=== PATIENT | female | born 1950 | race Caucasian/White ===

== ENCOUNTER 2019-03-21 14:44 | Emergency (ER) | payer MEDICARE, MEDICAID ==
[~2019-03-21] VITALS: Ht 177.8 cm; Wt 77.1 kg
[~2019-03-21 14:44] MED LIST: AMPYRA10 MG PO; ASCORBIC ACID500 M1 PO; B-12 DOTS500 MCG PO; BACLOFEN PO; BACLOFEN20 MG PO; BACTRIM; CALCIUM; CHOLECALCIFEROL; COUMADIN 5 MG TA5 M1 PO; CRANBERRY500 M1 PO; CYANOCOBALAM1000 MCG PO; DIFLUCAN; DITROPAN XL5 M1 PO; DUONEB 2.5-0.5 M3 ML IH; FOSAMAX 70 MG T70 M1 PO; GREEN TEA1 EACH PO; IBUPROFEN 200200 M1 PO; IBUPROFEN 800800 M1 PO; LACTULOSE; LASIX 40 MG TAB40 MG PO; LEVAQUIN 500 M500 M1 PO; LEVAQUIN 500 M500 M5 PO; LEVOTHROID300 MCG PO; LOVENOX SC; METHOTREXATE 22.5 MG PO; MOTOFEN TABLET1 EACH PO; NEPHROCAPS SOFT1 CAP PO; NEURONTIN 300300 M1 PO; NOHOMEMEDICATIONS; NORCO 5-325 TA1 EACH PO; OXYBUTYNIN; OXYBUTYNIN 5 MG5 M1 PO; PREMPHASE 0.621 EAC1 PO; PREMPRO 0.625-1 EACH PO; PROVERA2.5 MG PO; REBETOL200 MG PO; REBIF; SEE COMMENTS; STOOL SOFTENER240 MG PO; TIROSINT25 MCG PO; UNKNOWN MEDICATION; URISPAS100 MG PO; VESICARE 5 MG TA5 MG PO; VICODIN 5-5001 EACH PO; VITAMIN A10000 UNI3 IM; VITAMIN B-12500 MCG PO; VITAMIN C100 M1 PO; VITAMIN D1000 UNI1 PO; VITAMIN E400 UNIT PO; VITAMINC500 PO; ZOLOFT 50 MG TA50 M1 PO
[2019-03-21 15:19] LABS: ABSOLUTE LYMPHOCYTES 1.6 thou/uL (0.8-5.3); ABSOLUTE MONOCYTES 0.8 thou/uL (0.0-1.2); ABSOLUTE NEUTROPHILS 6.4 thou/uL (1.6-8.1); BASOPHILS 0.4 %; EOSINOPHILS 0.5 %; HEMATOCRIT 41.4 % (37.0-47.0); HEMOGLOBIN 13.6 gm/dL (12.0-15.0); MCH 28.8 pg (26.0-34.0); MCHC 32.9 g/dL (28.0-37.0); MCV 87.6 fL (80.0-100.0); MONOCYTES 8.6 %; MPV 9.1 fl. (7.2-11.1); NUCLEATED RBCS 0 /100WBC; PLATELET COUNT* 282 thou/uL (150-400); POLYS 72.5 %; RBC 4.73 mil/uL (4.20-5.00); RDW-CV 14.4 % (10.5-14.5); WBC 8.8 thou/uL (4.0-11.0)
[2019-03-21 15:24] LABS: CREATININE 0.5 mg/dL (0.6-1.3); POTASSIUM 4.4 mmol/L (3.5-5.1)
[2019-03-21 15:29] LABS: ALBUMIN 3.9 g/dL (3.4-5.0); TOTAL BILIRUBIN 0.5 mg/dL (<0.1-1.0); TOTAL PROTEIN 8.4 g/dL (6.4-8.2)
[2019-03-21 16:19] LABS: APTT 30.3 Seconds (25.0-31.3); INR 1.1; PROTIME 11.6 Seconds (9.20-11.50)
[2019-03-21 17:20] VITALS: BP 125/72
--- NOTE | 2019-03-24 17:07 | PATH ---
[facility] [address] [place] [address] PATHOLOGY RPT PROCEDURE Name: SHEELA MCDONOUGH Room: [facility] Nelly#: [id number] Admission: 03/21/19 Date of : 48 Discharge: 03/21/19 Report #: [id number] Path Case #: [id number] [facility] Accession Number: [id number] . 01 Material submitted: . esophagus - EOSPHAGEAL BIOPSY . 01 Clinical history: . Food bolus; R/O elan . 02 Diagnosis: Esophageal biopsy: - Typical of Elan esophagitis. See comment. . (FELISA:mayur; 03/23/2019) QMS 03/23/2019 1030 Local . 02 Comment: The biopies reveal acutely inflamed squamous/esophageal mucosa with easily identified fungal and yeast elements compatible with Elan species seen within the squamous epithelium. (FELISA:mayur; 03/23/2019) . 02 Electronically signed: . Ronaldo Figueroa MD, Pathologist NPI- [id number] . 01 Gross description: . The specimen is received in formalin, labeled "Sheela Mcdonough, esophageal biopsy". Received are three segments of pale hummel soft tissue ranging in size from 0.4 to 0.5 cm in maximum dimensions. The specimen is submitted entirely in cassette A1. (CAA; 03/22/2019) QAC/QAC 03/22/2019 1546 Local . 02 Pathologist provided ICD-10: B37.81 . 02 CPT . 308958 Specimen Comment: A courtesy copy of this report has been sent to [phone] Specimen Comment: Report sent to / DR ANDREWS Specimen Comment: A duplicate report has been generated due to demographic updates. Performed at: [address] [id number] MD Bry Haynes MD Phone: [phone] [place] [address] PATHOLOGY RPT PROCEDURE Name: SHEELA MCDONOUGH Room: [facility]#: [id number] Admission: 03/21/19 Date of : 48 Discharge: 03/21/19 Report #: [id number] Path Case #: [id number] Performed at: [address] [place], [place], [place] [id number] MD Ronaldo Figueroa MD Phone: [phone]
== END 2019-03-21 17:20 | disposition still patient (30) ==
LOC: M.GI 14:44 → M.ERS 14:44 → M.GI 17:20
PROVIDERS: Personal Emergency Response Attendant
DX: T18.128A Food in esophagus causing other injury, initial encounter (principal); J45.909 Unspecified asthma, uncomplicated; Z88.0 Allergy status to penicillin; Z88.5 Allergy status to narcotic agent; Z88.8 Allergy status to other drugs, medicaments and biological substances; Z90.49 Acquired absence of other specified parts of digestive tract; Z98.51 Tubal ligation status; X58.XXXA Exposure to other specified factors, initial encounter; Y93.89 Activity, other specified; Y92.89 Other specified places as the place of occurrence of the external cause; Y99.8 Other external cause status

== ENCOUNTER → 2019-05-12 | Day surgery (SDC) | payer OTHER, MEDICAID ==
[~2019-05-12] MED LIST changes: +ACETAMINOPHEN650 MG RECTAL; +CHILDREN'S ASPI81 M1 PO; +CULTURELLE KID1 EAC1 PO; +MECLIZINE HCL25 M1 PO; +MIDODRINE HCL 55 M1 PO; +MILK OF MA400 MG/5 M PO; +MIRALAX119 GM PO; +ONDANSETRON HCL4 M2 PO; +PAIN RELIEF325 MG PO; +PROTONIX40 M2 PO; +REGLAN 5 MG TAB5 MG PO; +SENNA PLUS TAB1 EACH PO; +SERTRALINE HCL100 MG PO; +TRAMADOL 50 MG50 MG PO
--- NOTE | ~2019-05-12 | PROC ---
[facility] [address] [place] [address] PROCEDURE REPORT Name: FELICIA MALIK Room: [facility]#: [id number] Admission: 05/12/19 Attend Phys: Long Wilder MD Discharge: Date of : 48 Report #: [id number] THIS REPORT FOR: //name// cc: Shady Johnson Scott DO ~ THIS REPORT FOR: //name// For GI report, please see the Provation report in [employer] content. By: 0637Medical Records Staff NEO /JANY
--- NOTE | 2019-05-12 10:25 | EKG ---
[place] [address] ELECTROCARDIOGRAM REPORT Name: FELICIA MALIK Room: [facility]#: [id number] Admission: 05/12/19 Attend Phys: Long Wilder MD Discharge: Date of : 48 Date of Service: 05/12/19 1008 Report #: [id number] THIS REPORT FOR: //name// [facility] Test Date: 2019-05-12 Test Time: 10:08:31 Pat Name: FELICIA MALIK Department: Room: Gender: F Flower Cheniller: : 1950 Requested By: Long Wilder Order Number: [id number] MD: Kade Santos Measurements Intervals [place] Rate: 78 P: 68 DC: 158 QRS: -40 QRSD: 124 T: 28 QT: 387 QTc: 441 Interpretive Statements Sinus rhythm incomplete RBBB Nonspecific IVCD with LAD Borderline T abnormalities, anterior leads Compared to ECG 08/14/2009 10:11:31 no change Electronically Signed On 05-12-2019 10:24:43 ACOUSTICAL INSTALLER by Kade Santos [email or web address] <ELECTRONICALLY SIGNED> By: Kade Santos MD, FACC 05/12/19 1024 1008 1008 Kade Santos MD, [facility] /EPI
[2019-05-12 10:33] LABS: HEMATOCRIT 37.9 % (37.0-47.0); HEMOGLOBIN 12.8 gm/dL (12.0-15.0); MCH 29.2 pg (26.0-34.0); MCHC 33.6 g/dL (28.0-37.0); MCV 86.9 fL (80.0-100.0); MPV 9.6 fl. (7.2-11.1); RBC 4.37 mil/uL (4.20-5.00); RDW-CV 14.1 % (10.5-14.5); WBC 5.5 thou/uL (4.0-11.0)
[2019-05-12 10:47] LABS: CREATININE 0.3 mg/dL (0.6-1.3); POTASSIUM 3.7 mmol/L (3.5-5.1)
== END | disposition home or self-care (01) ==
LOC: M.SUR 06:50
PROVIDERS: Internal Medicine Gastroenterology
DX: R13.19 Other dysphagia (principal); K21.9 Gastro-esophageal reflux disease without esophagitis; K22.2 Esophageal obstruction; K22.8 Other specified diseases of esophagus; K44.9 Diaphragmatic hernia without obstruction or gangrene; G35 Multiple sclerosis; J45.909 Unspecified asthma, uncomplicated; Z98.890 Other specified postprocedural states; Z79.899 Other long term (current) drug therapy; Z88.0 Allergy status to penicillin; Z98.51 Tubal ligation status; Z96.651 Presence of right artificial knee joint; Z90.49 Acquired absence of other specified parts of digestive tract; Z88.6 Allergy status to analgesic agent; Z88.8 Allergy status to other drugs, medicaments and biological substances

== ENCOUNTER 2020-02-12 11:31 | Inpatient (IN) | payer OTHER, MEDICAID ==
[~2020-02-12] VITALS: Ht 167.6 cm; Wt 83.5 kg
[~2020-02-12 11:31] MED LIST changes: -LEVOTHROID300 MCG PO; +LEVOTHYROXINE150 MC1 PO; +OXYBUTYNIN 5 MG5 M2 PO; -SERTRALINE HCL100 MG PO; +SERTRALINE HCL25 M1 PO
[2020-02-12] MEDS ORDERED: ACYCLOVIR 400400 MG PO (11:36)
[2020-02-12 11:38] VITALS: BP 114/57
[2020-02-12] MEDS ORDERED: DULCOLAX10 MG RECTAL (11:45)
[2020-02-12] MEDS ORDERED: BREO ELLIPTA 11 EACH INH (11:47)
[2020-02-12] MEDS ORDERED: DOXYCYCLINE 10100 M2 PO (11:48)
[2020-02-12] MEDS ORDERED: ERYTHROMYCIN250 M1 PO (11:48)
[2020-02-12] MEDS ORDERED: FISH OIL 1,0001 EAC9 PO (11:49)
[2020-02-12] MEDS ORDERED: FUROSEMIDE 20 M20 MG PO (11:50)
[2020-02-12] MEDS ORDERED: FLONASE 0.05%50 MCG NASAL (11:50)
[2020-02-12] MEDS ORDERED: NEURONTIN 300M300 M2 PO (11:51)
[2020-02-12] MEDS ORDERED: MELATONIN3 M1 PO (11:52)
[2020-02-12] MEDS ORDERED: MULTIVITAMINS1 EAC6 PO (11:53)
[2020-02-12] MEDS ORDERED: NYSTATIN100000 UNI SW&SWALLOW (11:53)
[2020-02-12] MEDS ORDERED: ZINC SULFATE220 MG PO (11:55)
[2020-02-12 12:12] LABS: HEMATOCRIT 38.7 % (37.0-47.0); HEMOGLOBIN 12.8 gm/dL (12.0-15.0); MCH 28.2 pg (26.0-34.0); MCHC 33.1 g/dL (28.0-37.0); MCV 85.3 fL (80.0-100.0); MPV 8.4 fl. (7.2-11.1); NUCLEATED RBCS 0 /100WBC; PLATELET COUNT* 204 thou/uL (150-400); RBC 4.54 mil/uL (4.20-5.00); RDW-CV 15.2 % (10.5-14.5); WBC 10.4 thou/uL (4.0-11.0)
[2020-02-12 12:21] LABS: CALCIUM 8.7 mg/dL (8.5-10.1); CREATININE 0.7 mg/dL (0.6-1.3); POTASSIUM 3.3 mmol/L (3.5-5.1)
[2020-02-12 12:24] LABS: APTT 34.2 Seconds (25.0-31.3); PROTIME 10.7 Seconds (9.20-11.50)
[2020-02-12 12:32] LABS: ALBUMIN 2.4 g/dL (3.4-5.0); TOTAL BILIRUBIN 0.5 mg/dL (<0.1-1.0); TOTAL PROTEIN 7.1 g/dL (6.4-8.2)
[2020-02-12 12:56] LABS: ABSOLUTE LYMPHOCYTES 0.8 thou/uL (0.8-5.3); ABSOLUTE MONOCYTES 0.3 thou/uL (0.0-1.2); ABSOLUTE NEUTROPHILS 9.3 thou/uL (1.6-8.1); PLATELET ESTIMATE ADEQUATE
[2020-02-12 14:03] VITALS: BP 123/50
--- NOTE | 2020-02-12 15:40 | EKG ---
[place] [address] ELECTROCARDIOGRAM REPORT Name: FELICIA MALIK Room: [address] ADM IN [facility]#: [id number] Admission: 02/12/20 Attend Phys: Steve Gonsales Discharge: Date of : 48 Date of Service: 02/12/20 1156 Report #: [id number] THIS REPORT FOR: //name// [facility] Test Date: 2020-02-12 Test Time: 11:56:51 Pat Name: FELICIA MALIK Department: Room: [facility] Gender: F [place]: BRENDA : 1950 Requested By: Segundo Felder Order Number: [id number] MD: Kade Santos Measurements Intervals [place] Rate: 124 P: 52 [place]: 137 QRS: -29 QRSD: 96 T: 10 QT: 346 QTc: 497 Interpretive Statements Sinus tachycardia Borderline left axis deviation Consider RVH w/ secondary repol abnormality Borderline prolonged QT interval artifact noted Compared to ECG 05/12/2019 10:08:31 Sinus rhythm no longer present Electronically Signed On 02-12-2020 15:40:22 FILM OR VIDEOTAPE EDITOR by Kade Santos [email or web address] <ELECTRONICALLY SIGNED> By: Kade Santos MD, FACC 02/12/20 1540 1156 1156 Kade Santos MD, FACC /EPI
[2020-02-12 16:14] LABS: CREATININE 0.3 mg/dL (0.6-1.3)
[2020-02-12 16:18] LABS: MAGNESIUM 2.1 mg/dL (1.8-2.4); PHOSPHORUS* 2.3 mg/dL (2.5-4.9)
[2020-02-12 20:00] VITALS: BP 105/65
[2020-02-12 20:19] LABS: PCO2 32.3 mmHg (35.0-45.0); PO2 72.6 mmHg (75.0-100.0)
[2020-02-12 21:30] VITALS: BP 110/67
[2020-02-13] VITALS (7 sets, daily range): BP systolic 106–139; BP diastolic 56–74
[2020-02-13 08:36] LABS: ABSOLUTE LYMPHOCYTES 0.5 thou/uL (0.8-5.3); ABSOLUTE MONOCYTES 0.4 thou/uL (0.0-1.2); HEMATOCRIT 34.8 % (37.0-47.0); HEMOGLOBIN 11.6 gm/dL (12.0-15.0); LYMPHOCYTES 8.7 %; MCH 28.2 pg (26.0-34.0); MCHC 33.3 g/dL (28.0-37.0); MCV 84.6 fL (80.0-100.0); MPV 8.3 fl. (7.2-11.1); NUCLEATED RBCS 0 /100WBC; PLATELET COUNT* 226 thou/uL (150-400); POLYS 85.3 %; RBC 4.11 mil/uL (4.20-5.00); RDW-CV 14.9 % (10.5-14.5); WBC 5.9 thou/uL (4.0-11.0)
[2020-02-13 08:54] LABS: ALBUMIN 2.1 g/dL (3.4-5.0); CALCIUM 7.6 mg/dL (8.5-10.1); CREATININE 0.2 mg/dL (0.6-1.3); MAGNESIUM 2.3 mg/dL (1.8-2.4); PHOSPHORUS* 2.3 mg/dL (2.5-4.9); POTASSIUM 3.7 mmol/L (3.5-5.1); TOTAL BILIRUBIN 0.3 mg/dL (<0.1-1.0); TOTAL PROTEIN 6.4 g/dL (6.4-8.2)
[2020-02-13 17:25] LABS: CREATININE 0.4 mg/dL (0.6-1.3); MAGNESIUM 2.1 mg/dL (1.8-2.4); POTASSIUM 3.7 mmol/L (3.5-5.1)
[2020-02-14] VITALS: BP 139/74
[2020-02-14 04:00] VITALS: BP 126/64
[2020-02-14 06:39] LABS: ABSOLUTE LYMPHOCYTES 0.5 thou/uL (0.8-5.3); ABSOLUTE MONOCYTES 0.4 thou/uL (0.0-1.2); BASOPHILS 0.2 %; EOSINOPHILS 0.1 %; HEMATOCRIT 34.6 % (37.0-47.0); HEMOGLOBIN 11.4 gm/dL (12.0-15.0); LYMPHOCYTES 7.6 %; MCH 28.2 pg (26.0-34.0); MCHC 32.8 g/dL (28.0-37.0); MCV 85.8 fL (80.0-100.0); MONOCYTES 5.1 %; MPV 8.1 fl. (7.2-11.1); NUCLEATED RBCS 0 /100WBC; PLATELET COUNT* 285 thou/uL (150-400); RBC 4.03 mil/uL (4.20-5.00); RDW-CV 14.9 % (10.5-14.5); WBC 6.9 thou/uL (4.0-11.0)
[2020-02-14 06:55] LABS: ALBUMIN 1.9 g/dL (3.4-5.0); ALKALINE PHOSPHATASE 48 U/L (46-116); BUN 14 mg/dL (7-18); CALCIUM 6.2 mg/dL (8.5-10.1); CO2 21 mmol/L (21-32); CREATININE 0.2 mg/dL (0.6-1.3); GLUCOSE 93 mg/dL (70-99); MAGNESIUM 1.7 mg/dL (1.8-2.4); SGOT 30 U/L (15-37); SGPT 17 U/L (30-65); SODIUM 145 mmol/L (136-145); TOTAL BILIRUBIN 0.4 mg/dL (<0.1-1.0); TOTAL PROTEIN 5.3 g/dL (6.4-8.2)
[2020-02-14 07:03] LABS: ANION GAP < 0 mmol/L (7-16); CHLORIDE 1141 mmol/L (98-107); POTASSIUM 2.4 mmol/L (3.5-5.1)
[2020-02-14 08:00] VITALS: BP 139/70
[2020-02-14 10:25] LABS: CREATININE 0.3 mg/dL (0.6-1.3)
[2020-02-14 10:53] LABS: CALCIUM 8.7 mg/dL (8.5-10.1); POTASSIUM 3.6 mmol/L (3.5-5.1)
[2020-02-14 11:27] VITALS: BP 156/91
[2020-02-14 16:50] VITALS: BP 134/71
[2020-02-14 18:53] LABS: CALCIUM 8.5 mg/dL (8.5-10.1); CREATININE 0.5 mg/dL (0.6-1.3); MAGNESIUM 2.1 mg/dL (1.8-2.4)
[2020-02-14 18:57] LABS: POTASSIUM 2.9 mmol/L (3.5-5.1)
[2020-02-14 21:04] VITALS: BP 137/74
[2020-02-15] VITALS (7 sets, daily range): BP systolic 128–142; BP diastolic 60–82
--- NOTE | 2020-02-15 12:38 | CON ---
[address] [address] CONSULTATION Name: HELENAFELICIA Alexander Room: [address] IN [facility]#: [id number] Admission: 02/12/20 Attend Phys: Steve Briseno, Discharge: Date of : 48 Report #: [id number] THIS REPORT FOR: cc: Shady Johnson Scott DO ~ Pervez, Adeel MD DATE OF SERVICE: 02/12/2020 REQUESTING PHYSICIAN: Consult has been requested by Dr. Briseno. INDICATION FOR CONSULTATION: Acute hypoxemic respiratory failure secondary to COVID-19. HISTORY OF PRESENT ILLNESS: This is a 69-year-old female with past medical history as mentioned below. The patient is the resident of a [facility]. She was diagnosed with COVID-19 eight days ago. The patient was now desaturating up to 74% and therefore was admitted to this hospital. The patient reports severe shortness of breath. She has also had a cough. There is not much sputum. The patient is noted to be DNR and DNI, was on 100% nonrebreather mask at the time of my evaluation. The patient answered to the negative for 10 questions for review of systems except as above. PAST MEDICAL HISTORY: Bronchial asthma, multiple sclerosis, goiter, thyroidectomy, appendectomy, anemia, cholecystectomy, tonsillectomy, adenoid removal, right total knee surgery, femur surgery, rotator cuff surgery, tubal ligation. ALLERGIES: THE PATIENT IS ALLERGIC TO PENICILLIN; HOWEVER, TOLERATES CEPHALOSPORINS WITHOUT ANY PROBLEMS. CODEINE, THIOPENTAL SODIUM ____. [facility]. HOME MEDICATIONS: Also in [facility] reviewed. Note, that these include doxycycline. It is not known to me as to whether this was a current or old medication. The patient is also noted to be on midodrine long-term. FAMILY HISTORY: There is no pertinent family history. PHYSICAL EXAMINATION: GENERAL: The patient is fully awake; however, is able to provide only a limited history. VITAL SIGNS: Has a pulse of 100 and blood pressure 123/50. She was saturating 98%, but was on 100% nonrebreather mask. She was afebrile with a temperature of 36.4. [place] [address] CONSULTATION Name: FELICIA MALIK Room: [address]#: [id number] Admission: 02/12/20 Attend Phys: Steve Briseno, Discharge: Date of : 48 Report #: [id number] HEENT: Head is normocephalic and atraumatic. NECK: Does not show raised JVP. CHEST: Breath sounds bilaterally equal, decreased. No added sounds. HEART: Regular. There is no murmur. ABDOMEN: Soft and nontender. EXTREMITIES: Lower extremities show no edema and no calf tenderness. SKIN: Dry and intact. NEUROLOGICAL: Moves all extremities bilaterally equally and spontaneously with no focal deficit identified. The patient's chest x-ray, which is consistent with infiltrates with COVID-19, there may be a component of pulmonary vascular congestion as well, in [employer] reviewed. ASSESSMENT AND PLAN: 1. Acute hypoxemic respiratory failure secondary to COVID-19. We will place her on BiPAP while asleep. We will titrate oxygen on a high-flow nasal cannula or heat high-flow nasal cannula as indicated when awake. We will see if we can take her off the 100% nonrebreather mask. 2. COVID-19. Start dexamethasone. Start remdesivir. We will give units of convalescent plasma. 3. Pulmonary infiltrates. The patient is from a [facility]. Therefore, broad-spectrum antibiotic coverage is ordered. Cultures and serologies including nasal swab for MRSA are ordered. Note that there is mention of doxycycline outpatient. It is not known to me as to whether this usage is current or recent. 4. Hypokalemia/hypotension/mild fluid overload. I ordered one dose of Aldactone with only 20 mg of Lasix as the patient's potassium is low. We will plan to diurese her more later. The patient takes midodrine long-term, we will restart midodrine as well. 5. evaluation for thromboembolic phenomenon. We will do D-dimer. If the D-dimer is elevated, then we will obtain a CTA chest. 6. Clostridium difficile prophylaxis, she is already on probiotic. 7. Gastrointestinal prophylaxis. Will order Protonix. 8. Past medical history of multiple sclerosis. The patient is critically ill at this time. Total time spent providing critical care to this patient today exceeds 45 minutes. <ELECTRONICALLY SIGNED> By: Wander Hayward MD 02/15/20 1238 1936 [id number] Hayward MD /nt
[2020-02-15 13:32] LABS: CALCIUM 8.5 mg/dL (8.5-10.1); CREATININE 0.4 mg/dL (0.6-1.3); MAGNESIUM 2.3 mg/dL (1.8-2.4); POTASSIUM 3.6 mmol/L (3.5-5.1)
[2020-02-16] VITALS (7 sets, daily range): BP systolic 124–152; BP diastolic 61–84
[2020-02-16 02:06] LABS: MYCOPLASMA PNEUMONIA IgG 180 U/mL (0-99); MYCOPLASMA PNEUMONIA IgM <770 U/mL (0-769)
[2020-02-16 05:30] LABS: HEMATOCRIT 34.1 % (37.0-47.0); HEMOGLOBIN 11.3 gm/dL (12.0-15.0); MCH 27.9 pg (26.0-34.0); MCV 84.4 fL (80.0-100.0); MPV 8.2 fl. (7.2-11.1); NUCLEATED RBCS 0 /100WBC; PLATELET COUNT* 319 thou/uL (150-400); RBC 4.04 mil/uL (4.20-5.00); RDW-CV 15.1 % (10.5-14.5); WBC 7.2 thou/uL (4.0-11.0)
[2020-02-16 06:03] LABS: ALBUMIN 2.8 g/dL (3.4-5.0); CALCIUM 8.3 mg/dL (8.5-10.1); CREATININE 0.4 mg/dL (0.6-1.3); POTASSIUM 3.1 mmol/L (3.5-5.1); TOTAL BILIRUBIN 0.6 mg/dL (<0.1-1.0)
[2020-02-16 07:25] LABS: ABSOLUTE LYMPHOCYTES 1.1 thou/uL (0.8-5.3); ABSOLUTE MONOCYTES 0.2 thou/uL (0.0-1.2); ABSOLUTE NEUTROPHILS 5.9 thou/uL (1.6-8.1); PLATELET ESTIMATE ADEQUATE
[2020-02-17 04:09] VITALS: BP 145/69
[2020-02-17 05:32] LABS: ABSOLUTE LYMPHOCYTES 0.6 thou/uL (0.8-5.3); ABSOLUTE MONOCYTES 0.6 thou/uL (0.0-1.2); ABSOLUTE NEUTROPHILS 7.9 thou/uL (1.6-8.1); BASOPHILS 0.5 %; HEMATOCRIT 34.8 % (37.0-47.0); HEMOGLOBIN 11.6 gm/dL (12.0-15.0); LYMPHOCYTES 6.7 %; MCH 28.3 pg (26.0-34.0); MCHC 33.4 g/dL (28.0-37.0); MCV 84.7 fL (80.0-100.0); MONOCYTES 6.7 %; NUCLEATED RBCS 0 /100WBC; PLATELET COUNT* 357 thou/uL (150-400); POLYS 86.1 %; RBC 4.11 mil/uL (4.20-5.00); RDW-CV 15.1 % (10.5-14.5); WBC 9.1 thou/uL (4.0-11.0)
[2020-02-17 06:01] LABS: ALBUMIN 2.5 g/dL (3.4-5.0); CALCIUM 7.7 mg/dL (8.5-10.1); CREATININE 0.3 mg/dL (0.6-1.3); POTASSIUM 4.1 mmol/L (3.5-5.1); TOTAL BILIRUBIN 0.5 mg/dL (<0.1-1.0); TOTAL PROTEIN 6.2 g/dL (6.4-8.2)
[2020-02-17 08:30] VITALS: BP 146/86
[2020-02-17 13:13] VITALS: BP 155/71
[2020-02-17 19:33] VITALS: BP 164/78
[2020-02-17 21:33] VITALS: BP 123/67
[2020-02-18 00:22] VITALS: BP 120/59
[2020-02-18 05:02] VITALS: BP 151/75
[2020-02-18 08:30] VITALS: BP 128/67
[2020-02-18 13:41] VITALS: BP 116/60
[2020-02-18 16:45] VITALS: BP 140/78
[2020-02-18 21:21] VITALS: BP 125/59
[2020-02-19 00:20] VITALS: BP 126/64
[2020-02-19 04:44] VITALS: BP 129/70
[2020-02-19 08:00] VITALS: BP 122/64
[2020-02-19 12:35] VITALS: BP 128/73
[2020-02-19 16:00] VITALS: BP 130/60
[2020-02-19 16:10] LABS: ABSOLUTE LYMPHOCYTES 0.5 thou/uL (0.8-5.3); ABSOLUTE MONOCYTES 0.9 thou/uL (0.0-1.2); ABSOLUTE NEUTROPHILS 12.8 thou/uL (1.6-8.1); BASOPHILS 0.1 %; HEMATOCRIT 35.1 % (37.0-47.0); HEMOGLOBIN 11.5 gm/dL (12.0-15.0); LYMPHOCYTES 3.6 %; MCH 27.8 pg (26.0-34.0); MCHC 32.7 g/dL (28.0-37.0); MCV 85.1 fL (80.0-100.0); MONOCYTES 6.5 %; MPV 8.7 fl. (7.2-11.1); NUCLEATED RBCS 0 /100WBC; PLATELET COUNT* 400 thou/uL (150-400); POLYS 89.8 %; RBC 4.12 mil/uL (4.20-5.00); RDW-CV 15.1 % (10.5-14.5); WBC 14.3 thou/uL (4.0-11.0)
[2020-02-19 16:22] LABS: ALBUMIN 2.3 g/dL (3.4-5.0); CALCIUM 8.2 mg/dL (8.5-10.1); CREATININE 0.5 mg/dL (0.6-1.3); MAGNESIUM 2.1 mg/dL (1.8-2.4); TOTAL BILIRUBIN 0.5 mg/dL (<0.1-1.0); TOTAL PROTEIN 5.6 g/dL (6.4-8.2)
[2020-02-19 21:00] VITALS: BP 133/67
[2020-02-20 00:42] VITALS: BP 125/65
[2020-02-20 04:00] VITALS: BP 131/70
[2020-02-20 06:58] LABS: HEMATOCRIT 34.5 % (37.0-47.0); HEMOGLOBIN 11.4 gm/dL (12.0-15.0); MCH 28.3 pg (26.0-34.0); MCHC 33.2 g/dL (28.0-37.0); MCV 85.2 fL (80.0-100.0); MPV 8.8 fl. (7.2-11.1); NUCLEATED RBCS 0 /100WBC; PLATELET COUNT* 394 thou/uL (150-400); RBC 4.05 mil/uL (4.20-5.00); RDW-CV 15.1 % (10.5-14.5); WBC 10.7 thou/uL (4.0-11.0)
[2020-02-20 07:34] LABS: ALBUMIN 2.3 g/dL (3.4-5.0); CALCIUM 7.9 mg/dL (8.5-10.1); CREATININE 0.3 mg/dL (0.6-1.3); MAGNESIUM 2.2 mg/dL (1.8-2.4); PHOSPHORUS* 2.8 mg/dL (2.5-4.9); POTASSIUM 4.4 mmol/L (3.5-5.1); TOTAL BILIRUBIN 0.5 mg/dL (<0.1-1.0); TOTAL PROTEIN 5.9 g/dL (6.4-8.2)
[2020-02-20 08:56] LABS: ABSOLUTE LYMPHOCYTES 0.6 thou/uL (0.8-5.3); ABSOLUTE MONOCYTES 0.4 thou/uL (0.0-1.2); ABSOLUTE NEUTROPHILS 9.6 thou/uL (1.6-8.1); ANISOCYTOSIS 1+; HYPOCHROMASIA Occasional; PLATELET ESTIMATE ADEQUATE; POIKILOCYTOSIS 1+
[2020-02-20 09:00] VITALS: BP 116/62
[2020-02-20 12:30] VITALS: BP 115/59
[2020-02-20 16:00] VITALS: BP 123/56
[2020-02-20 17:08] LABS: CALCIUM 8.4 mg/dL (8.5-10.1); CREATININE 0.5 mg/dL (0.6-1.3); MAGNESIUM 2.1 mg/dL (1.8-2.4); POTASSIUM 3.5 mmol/L (3.5-5.1)
[2020-02-20 21:00] VITALS: BP 123/57
[2020-02-21] VITALS (7 sets, daily range): BP systolic 80–141; BP diastolic 49–75
[2020-02-21 07:16] LABS: HEMATOCRIT 34.6 % (37.0-47.0); HEMOGLOBIN 11.4 gm/dL (12.0-15.0); MCHC 32.9 g/dL (28.0-37.0); MCV 85.2 fL (80.0-100.0); MPV 8.9 fl. (7.2-11.1); RBC 4.07 mil/uL (4.20-5.00); RDW-CV 15.1 % (10.5-14.5); WBC 9.1 thou/uL (4.0-11.0)
[2020-02-21 07:26] LABS: ALBUMIN 2.3 g/dL (3.4-5.0); CALCIUM 7.9 mg/dL (8.5-10.1); CREATININE 0.3 mg/dL (0.6-1.3); MAGNESIUM 2.1 mg/dL (1.8-2.4); POTASSIUM 4.2 mmol/L (3.5-5.1); TOTAL BILIRUBIN 0.5 mg/dL (<0.1-1.0); TOTAL PROTEIN 5.9 g/dL (6.4-8.2)
[2020-02-21 18:19] LABS: CALCIUM 8.4 mg/dL (8.5-10.1); CREATININE 0.4 mg/dL (0.6-1.3); MAGNESIUM 2.2 mg/dL (1.8-2.4); POTASSIUM 3.6 mmol/L (3.5-5.1)
[2020-02-22] VITALS: BP 117/51
[2020-02-22 06:43] LABS: ABSOLUTE BASOPHILS 0.1 thou/uL (0.0-0.2); ABSOLUTE LYMPHOCYTES 0.7 thou/uL (0.8-5.3); ABSOLUTE MONOCYTES 0.6 thou/uL (0.0-1.2); ABSOLUTE NEUTROPHILS 9.4 thou/uL (1.6-8.1); BASOPHILS 0.9 %; HEMATOCRIT 32.9 % (37.0-47.0); HEMOGLOBIN 10.9 gm/dL (12.0-15.0); LYMPHOCYTES 6.5 %; MCH 28.2 pg (26.0-34.0); MCHC 33.3 g/dL (28.0-37.0); MCV 84.8 fL (80.0-100.0); MONOCYTES 5.6 %; MPV 8.8 fl. (7.2-11.1); NUCLEATED RBCS 0 /100WBC; PLATELET COUNT* 385 thou/uL (150-400); RBC 3.88 mil/uL (4.20-5.00); RDW-CV 15.2 % (10.5-14.5); WBC 10.8 thou/uL (4.0-11.0)
[2020-02-22 07:01] LABS: ALBUMIN 2.8 g/dL (3.4-5.0); CALCIUM 8.6 mg/dL (8.5-10.1); CREATININE 0.3 mg/dL (0.6-1.3); MAGNESIUM 2.2 mg/dL (1.8-2.4); PHOSPHORUS* 2.9 mg/dL (2.5-4.9); POTASSIUM 3.5 mmol/L (3.5-5.1); TOTAL BILIRUBIN 0.5 mg/dL (<0.1-1.0)
[2020-02-22 08:30] VITALS: BP 135/74
[2020-02-22 12:30] VITALS: BP 109/60
[2020-02-22 19:15] VITALS: BP 124/67
[2020-02-22 21:00] VITALS: BP 99/54
[2020-02-22 23:32] VITALS: BP 119/55
[2020-02-23 04:00] VITALS: BP 119/68
[2020-02-23 07:04] LABS: ABSOLUTE LYMPHOCYTES 0.6 thou/uL (0.8-5.3); ABSOLUTE MONOCYTES 0.7 thou/uL (0.0-1.2); BASOPHILS 0.2 %; HEMATOCRIT 34.3 % (37.0-47.0); HEMOGLOBIN 11.1 gm/dL (12.0-15.0); LYMPHOCYTES 5.4 %; MCH 27.9 pg (26.0-34.0); MCHC 32.5 g/dL (28.0-37.0); MCV 85.8 fL (80.0-100.0); MONOCYTES 6.1 %; MPV 8.5 fl. (7.2-11.1); NUCLEATED RBCS 0 /100WBC; PLATELET COUNT* 403 thou/uL (150-400); POLYS 88.3 %; RBC 3.99 mil/uL (4.20-5.00); RDW-CV 14.9 % (10.5-14.5); WBC 11.3 thou/uL (4.0-11.0)
[2020-02-23 07:12] LABS: CALCIUM 8.7 mg/dL (8.5-10.1); CREATININE 0.4 mg/dL (0.6-1.3); MAGNESIUM 2.5 mg/dL (1.8-2.4); POTASSIUM 3.8 mmol/L (3.5-5.1)
[2020-02-23 08:00] VITALS: BP 110/63
[2020-02-23 12:00] VITALS: BP 121/70
[2020-02-23 17:12] VITALS: BP 120/66
[2020-02-23 21:30] VITALS: BP 116/54
[2020-02-23 23:55] VITALS: BP 138/62
[2020-02-24 04:59] VITALS: BP 130/61
[2020-02-24 05:37] LABS: CALCIUM 8.2 mg/dL (8.5-10.1); CREATININE 0.3 mg/dL (0.6-1.3); MAGNESIUM 2.5 mg/dL (1.8-2.4); POTASSIUM 3.3 mmol/L (3.5-5.1)
[2020-02-24 08:00] VITALS: BP 108/57
[2020-02-24 12:00] VITALS: BP 123/68
[2020-02-24 16:00] VITALS: BP 112/52
[2020-02-24 20:15] VITALS: BP 122/73
[2020-02-25] VITALS: BP 131/72
[2020-02-25 04:39] VITALS: BP 134/70
[2020-02-25 08:00] VITALS: BP 110/55
[2020-02-25 09:30] LABS: HEMATOCRIT 34.7 % (37.0-47.0); HEMOGLOBIN 11.3 gm/dL (12.0-15.0); MCH 27.7 pg (26.0-34.0); MCHC 32.6 g/dL (28.0-37.0); MCV 85.2 fL (80.0-100.0); MPV 8.8 fl. (7.2-11.1); NUCLEATED RBCS 0 /100WBC; PLATELET COUNT* 419 thou/uL (150-400); RBC 4.07 mil/uL (4.20-5.00); RDW-CV 14.6 % (10.5-14.5); WBC 13.4 thou/uL (4.0-11.0)
[2020-02-25 09:41] LABS: CALCIUM 8.9 mg/dL (8.5-10.1); CREATININE 0.4 mg/dL (0.6-1.3); MAGNESIUM 2.5 mg/dL (1.8-2.4); POTASSIUM 4.2 mmol/L (3.5-5.1)
[2020-02-25 10:38] LABS: ABSOLUTE LYMPHOCYTES 1.9 thou/uL (0.8-5.3); ABSOLUTE MONOCYTES 1.5 thou/uL (0.0-1.2); ABSOLUTE NEUTROPHILS 10.1 thou/uL (1.6-8.1); METAMYELOCYTES 1 %; PLATELET ESTIMATE ADEQUATE
[2020-02-25 12:00] VITALS: BP 112/54
[2020-02-25 20:05] VITALS: BP 115/65
[2020-02-26 01:05] VITALS: BP 115/63
[2020-02-26 04:49] VITALS: BP 103/56
[2020-02-26 12:35] VITALS: BP 112/60
[2020-02-26 17:13] VITALS: BP 113/64
[2020-02-26 21:59] VITALS: BP 111/65
[2020-02-27] VITALS: BP 110/65
[2020-02-27 04:00] VITALS: BP 118/75
[2020-02-27 05:25] LABS: HEMATOCRIT 36.5 % (37.0-47.0); HEMOGLOBIN 11.7 gm/dL (12.0-15.0); MCHC 32.2 g/dL (28.0-37.0); MPV 8.9 fl. (7.2-11.1); RBC 4.19 mil/uL (4.20-5.00); RDW-CV 14.9 % (10.5-14.5); WBC 15.1 thou/uL (4.0-11.0)
[2020-02-27 05:30] LABS: CALCIUM 8.7 mg/dL (8.5-10.1); CREATININE 0.3 mg/dL (0.6-1.3); MAGNESIUM 2.5 mg/dL (1.8-2.4); POTASSIUM 3.6 mmol/L (3.5-5.1)
[2020-02-27 08:00] VITALS: BP 120/60
[2020-02-27] MEDS ORDERED: TRAMADOL 50 MG50 MG PO (09:36)
[2020-02-27] MEDS ORDERED: NEXIUM40 MG PO (09:36)
[2020-02-27] MEDS ORDERED: PROAIR HFA8.5 GM INH (09:39)
[2020-02-27] MEDS ORDERED: PREDNISONE 10 M10 MG PO (09:49)
[2020-02-27 12:37] LABS: URINE BILIRUBIN NEGATIVE (Negative); URINE BLOOD 3+ (Negative); URINE CLARITY CLEAR; URINE COLOR YELLOW; URINE GLUCOSE-RANDOM NEGATIVE (Negative); URINE KETONES NEGATIVE (Negative); URINE PROTEIN 1+ (Negative); URINE SPECIFIC GRAVITY 1.025 (1.005-1.030); URINE UROBILINOGEN 0.2 E.U./dl (0.2-1.0)
[2020-02-27 12:38] LABS: URINE LEUKOCYTES-REFLEX 2+ (Negative); URINE NITRITE-REFLEX POSITIVE (Negative)
[2020-02-27 12:48] LABS: CRYSTALS None Seen /LPF (None Seen); FINE GRANULAR CASTS 0-3 Few /LPF (None Seen); HYALINE CASTS 0-3 Few /LPF (None Seen); MUCUS 0-3 Light strn/LPF (None Seen); SQUAMOUS 0-3 Few /LPF (0-3)
[2020-02-27 12:49] LABS: YEAST-REFLEX Present (None Seen)
[2020-02-27] MEDS ORDERED: CIPRO250 M2 PO (14:52)
[2020-02-27 15:30] VITALS: BP 120/60
--- NOTE | 2020-03-01 13:51 | CON ---
[address] [address] CONSULTATION Name: HELENAFELICIA Room: [address] IN .R.#: [id number] Admission: 02/12/20 Attend Phys: Steve Briseno, Discharge: 02/27/20 Date of : 48 Report #: [id number] THIS REPORT FOR: cc: Shady Johnson Scott DO ~ Khosla, Parveen K. MD DATE OF SERVICE: 02/14/2020 HISTORY OF PRESENT ILLNESS: This is a 69-year-old female patient who was evaluated by me for altered mental status. The patient does not provide any reliable history, so I called the patient's sister, she gave a history that long time ago, she was diagnosed with MS, MS progressively became worse. She saw Dr. Melton. By the time disease modifying treatment came, she was already in the wheelchair. She is in a shelter now and she is quadriplegic. She can move her right hand a little bit, but otherwise she is functionally quadriplegic as I understand. She developed COVID and she had hypoxia. She has been seen by multiple consultants at this time. The patient has requested a DNR status. Review of systems indicates she has a history of bronchial asthma, multiple sclerosis, goiter, thyroidectomy, appendectomy, anemia, cholecystectomy, tonsillectomy. She has a longstanding history of MS as I described above. PAST MEDICAL HISTORY: Positive for MS, which is very severe and debilitating. FAMILY HISTORY: Unremarkable. SOCIAL HISTORY: She has a sister whom I talked to. PHYSICAL EXAMINATION: The patient's examination is pretty limited. She wakes up and when I asked what month it is, she did not tell me, but when I asked her who the president is, she said [place]. After thinking she was able to tell me that she is in [facility]. She had very little movement in the right hand, it was grade 1, but I did not see her move anything else, but that is the history, which is compatible with that history her sister provided me. Her blood pressure is 134/71. She was moderately having breathing difficulty. Temperature is 97.1. LABORATORY DATA: White count is 6.9. Her potassium is only 2.9. She did not have any imaging study of the brain. IMPRESSION: I think this patient has a severe MS in the baseline. She has a very severe sickness now. The question is how aggressive to be on her. I talked to the sister, she is comfortable not doing any testing on her. I will not do any treatment for the MS at this stage, but if [place] [address] CONSULTATION Name: HELENAFELICIA Room: [address] IN ..#: [id number] Admission: 02/12/20 Attend Phys: Steve Briseno, Discharge: 02/27/20 Date of : 48 Report #: [id number] of the head to make sure nothing else is going on, but I do not have any specific recommendation otherwise except for systemic problem and systemic management. I did order a vitamin B12, vitamin D, and TSH on her since the last TSH was high and you can check that and correct that if necessary. I talked to the patient first and subsequently I talked to the patient's sister and reviewed all her records and more than 50 minutes of time was spent taking care of this patient today and majority was spent counseling and coordinating her care. <ELECTRONICALLY SIGNED> By: Familia Sanders MD 03/01/20 1351 1928 [id number] Sanders MD /nt
== END 2020-02-27 17:23 | DRG 177 ==
LOC: M.ERS 11:31 → M.ORTHSURG 12:14 → M.TBA-ER 12:14 → M.ORTHSURG 14:36
PROVIDERS: Family Medicine; Internal Medicine; Internal Medicine Critical Care Medicine; ADMIT Family Medicine; ATTEND Family Medicine
PROC: XW13325 Transfusion of Convalescent Plasma (Nonautologous) into Peripheral Vein, Percutaneous Approach, New Technology Group 5 (ICD-10-PCS; principal; 2020-02-12)
PROC: XW033E5 Introduction of Remdesivir Anti-infective into Peripheral Vein, Percutaneous Approach, New Technology Group 5 (ICD-10-PCS; principal; 2020-02-12)
PROC: 5A09357 Assistance with Respiratory Ventilation, Less than 24 Consecutive Hours, Continuous Positive Airway Pressure (ICD-10-PCS; principal; 2020-02-12)
PROC: 5A09357 Assistance with Respiratory Ventilation, Less than 24 Consecutive Hours, Continuous Positive Airway Pressure (ICD-10-PCS; 2020-02-13)
PROC: 5A0935A Assistance with Respiratory Ventilation, Less than 24 Consecutive Hours, High Flow/Velocity Cannula (ICD-10-PCS; 2020-02-13)
PROC: 5A0935A Assistance with Respiratory Ventilation, Less than 24 Consecutive Hours, High Flow/Velocity Cannula (ICD-10-PCS; 2020-02-14)
PROC: 5A09357 Assistance with Respiratory Ventilation, Less than 24 Consecutive Hours, Continuous Positive Airway Pressure (ICD-10-PCS; 2020-02-14)
PROC: 5A09357 Assistance with Respiratory Ventilation, Less than 24 Consecutive Hours, Continuous Positive Airway Pressure (ICD-10-PCS; 2020-02-15)
PROC: 5A0935A Assistance with Respiratory Ventilation, Less than 24 Consecutive Hours, High Flow/Velocity Cannula (ICD-10-PCS; 2020-02-15)
PROC: 5A09357 Assistance with Respiratory Ventilation, Less than 24 Consecutive Hours, Continuous Positive Airway Pressure (ICD-10-PCS; 2020-02-16)
PROC: 5A0935A Assistance with Respiratory Ventilation, Less than 24 Consecutive Hours, High Flow/Velocity Cannula (ICD-10-PCS; 2020-02-16)
PROC: 5A0935A Assistance with Respiratory Ventilation, Less than 24 Consecutive Hours, High Flow/Velocity Cannula (ICD-10-PCS; 2020-02-17)
PROC: 5A09357 Assistance with Respiratory Ventilation, Less than 24 Consecutive Hours, Continuous Positive Airway Pressure (ICD-10-PCS; 2020-02-17)
PROC: 5A09357 Assistance with Respiratory Ventilation, Less than 24 Consecutive Hours, Continuous Positive Airway Pressure (ICD-10-PCS; 2020-02-18)
PROC: 5A0935A Assistance with Respiratory Ventilation, Less than 24 Consecutive Hours, High Flow/Velocity Cannula (ICD-10-PCS; 2020-02-18)
PROC: 5A0935A Assistance with Respiratory Ventilation, Less than 24 Consecutive Hours, High Flow/Velocity Cannula (ICD-10-PCS; 2020-02-19)
PROC: 5A09357 Assistance with Respiratory Ventilation, Less than 24 Consecutive Hours, Continuous Positive Airway Pressure (ICD-10-PCS; 2020-02-20)
PROC: 5A0935A Assistance with Respiratory Ventilation, Less than 24 Consecutive Hours, High Flow/Velocity Cannula (ICD-10-PCS; 2020-02-20)
PROC: 5A0935A Assistance with Respiratory Ventilation, Less than 24 Consecutive Hours, High Flow/Velocity Cannula (ICD-10-PCS; 2020-02-21)
PROC: 5A09357 Assistance with Respiratory Ventilation, Less than 24 Consecutive Hours, Continuous Positive Airway Pressure (ICD-10-PCS; 2020-02-21)
PROC: 5A0935A Assistance with Respiratory Ventilation, Less than 24 Consecutive Hours, High Flow/Velocity Cannula (ICD-10-PCS; 2020-02-22)
PROC: 02HV33Z Insertion of Infusion Device into Superior Vena Cava, Percutaneous Approach (ICD-10-PCS; 2020-02-23)
PROC: 5A0935A Assistance with Respiratory Ventilation, Less than 24 Consecutive Hours, High Flow/Velocity Cannula (ICD-10-PCS; 2020-02-23)
PROC: B548ZZA Ultrasonography of Superior Vena Cava, Guidance (ICD-10-PCS; 2020-02-23)
PROC: 5A09357 Assistance with Respiratory Ventilation, Less than 24 Consecutive Hours, Continuous Positive Airway Pressure (ICD-10-PCS; 2020-02-23)
PROC: 5A0935A Assistance with Respiratory Ventilation, Less than 24 Consecutive Hours, High Flow/Velocity Cannula (ICD-10-PCS; 2020-02-24)
PROC: 5A0935A Assistance with Respiratory Ventilation, Less than 24 Consecutive Hours, High Flow/Velocity Cannula (ICD-10-PCS; 2020-02-25)
PROC: 5A0935A Assistance with Respiratory Ventilation, Less than 24 Consecutive Hours, High Flow/Velocity Cannula (ICD-10-PCS; 2020-02-26)
PROC: 5A0935A Assistance with Respiratory Ventilation, Less than 24 Consecutive Hours, High Flow/Velocity Cannula (ICD-10-PCS; 2020-02-27)
DX: U07.1 COVID-19 (principal); J12.89 Other viral pneumonia; J96.01 Acute respiratory failure with hypoxia; J15.6 Pneumonia due to other Gram-negative bacteria; N39.0 Urinary tract infection, site not specified; G35 Multiple sclerosis; E87.6 Hypokalemia; I95.9 Hypotension, unspecified; Z66 Do not resuscitate; I50.9 Heart failure, unspecified; E87.70 Fluid overload, unspecified; Z96.651 Presence of right artificial knee joint; Z79.899 Other long term (current) drug therapy; Z90.49 Acquired absence of other specified parts of digestive tract; Z88.5 Allergy status to narcotic agent; Z88.0 Allergy status to penicillin; Z88.8 Allergy status to other drugs, medicaments and biological substances